=== PATIENT | male | born 1985 | race Caucasian/White ===

== ENCOUNTER 2016-08-29 09:35 | Emergency (ER) | payer OTHER ==
[~2016-08-29] VITALS: Ht 167.6 cm; Wt 123.1 kg
[2016-08-29 10:52] VITALS: BP 118/64
== END 2016-08-29 10:52 | disposition home or self-care (01) ==
LOC: ED 09:35
DX: R05 Cough (principal); R11.2 Nausea with vomiting, unspecified; M79.1 Myalgia; R51 Headache; R06.02 Shortness of breath; H57.8 Other specified disorders of eye and adnexa